=== PATIENT | male | born 1995 | race Caucasian/White ===

== ENCOUNTER 2023-10-24 07:53 | Outpatient (OUT) | payer OTHER, SELFPAY ==
[2023-10-24 08:13] LABS: Basophils Percent Auto 0.4 % (0.2-2.0); Eosinophils Absolute Auto 0.5 10^3/uL (0.0-0.7); Eosinophils Percent Auto 5.7 % (0.9-7.0); Hematocrit 46.7 % (42.0-54.0); Hemoglobin 15.7 g/dL (14.0-18.0); Immature Granulocytes Abs Auto 0.01 10^3/uL (0.00-0.03); Immature Granulocytes Pct Auto 0.1 % (0.0-0.5); Lymphocytes Absolute Auto 3.1 10^3/uL (1.2-3.8); Mean Corpuscular HGB Conc 33.6 g/dL (29.9-35.2); Mean Corpuscular Hemoglobin 29.3 pg (25.9-34.0); Mean Corpuscular Volume 87.3 fL (80.0-94.0); Mean Platelet Volume 9.8 fL (9.5-13.5); Monocytes Absolute Auto 0.7 10^3/uL (0.3-0.8); Neutrophils Percent Auto 47.8 % (43.0-75.0); Platelet Count 269 10^3/uL (150-450); Red Blood Count 5.35 10^6/uL (4.70-6.10); Red Cell Distribution Width 11.9 % (11.0-15.0); White Blood Count 8.3 10^3/uL (4.0-11.0)
[2023-10-24 08:35] LABS: Estimated Average Glucose 105 mg/dL; Glycohemoglobin A1C 5.3 % (4.5-6.2)
[2023-10-24 08:49] LABS: Bilirubin Urine NEGATIVE (NEGATIVE); Blood Urine TRACE-I (NEGATIVE); Clarity Urine CLEAR (CLEAR); Color Urine YELLOW (YELLOW); Glucose Urine UA NEGATIVE (NEGATIVE); Ketones Urine NEGATIVE (NEGATIVE); Leukocyte Esterase Urine NEGATIVE (NEGATIVE); Nitrite Urine NEGATIVE (NEGATIVE); Protein Urine NEGATIVE (NEG/TRACE); Specific Gravity Urine >=1.030 (1.005-1.025); Urobilinogen Urine 0.2 EU/dL (0.2-1.0); pH Urine 5.5 (5.0-9.0)
[2023-10-24 09:08] LABS: Bacteria Urine TRACE #/HPF (NONE SEEN); Crystals Seen? None Seen #/HPF (None Seen); Mucus Urine NONE SEEN (NONE SEEN); RBC Urine 0-2 #/HPF (0-2); Squamous Epithelial Cell Urine RARE #/LPF (NONE/RARE); WBC Urine 0-2 #/HPF (NONE SEEN)
[2023-10-24 09:09] LABS: Cast Seen? NONE SEEN #/LPF (NONE SEEN)
[2023-10-24 09:30] LABS: Alanine Aminotransferase 63 U/L (16-63); Albumin Globulin Ratio 0.9; Alkaline Phosphatase 64 U/L (46-116); Anion Gap 11.3; Aspartate Amino Transferase 16 U/L (15-37); BUN Creatinine Ratio 18.9; Bilirubin Total 0.4 mg/dL (0.2-1.0); Calcium 9.4 mg/dL (8.5-10.1); Carbon Dioxide 29.7 mmol/L (21.0-32.0); Chloride 104 mmol/L (98-107); Chol HDL Ratio 4.6; Cholesterol 225 mg/dL (<=200); Estimated GFR (African America >60 (>=60); Estimated GFR (Non-African Ame >60 (>=60); Globulin 4.3 g/dL; Glucose 95 mg/dL (74-106); HDL Cholesterol 49 mg/dL (40-60); Sodium 141 mmol/L (136-145); Thyroid Stimulating Hormone 1.205 uIU/mL (0.358-3.740); Total Protein 8.3 g/dL (6.4-8.2); Triglycerides 74 mg/dL (<=150); Uric Acid 5.4 mg/dL (3.5-7.2); VLDL CHOLESTEROL 14.8 mg/dL
== END 2023-10-24 07:54 | disposition home or self-care (01) ==
LOC: LAB 07:57
PROVIDERS: PCP Family Medicine; Visit Provider Family Medicine
DX: Z00.00 Encounter for general adult medical examination without abnormal findings (principal); M10.9 Gout, unspecified
CPT/HCPCS: 36415; 80053; 80061; 81001; 83036; 84443; 84550; 85025

== ENCOUNTER 2023-11-17 20:00 | Outpatient (OUT) | payer OTHER, SELFPAY ==
--- OUTSIDE RECORDS SUMMARY | 2023-11-17 20:02 | XMS_ITS | CCD ---
Author Name Unknown Address [address] [facility] [address] [place] [address] Organization [facility] Care Team Providers Care Field Operations Coordinator Name Role Phone JOAQUINA, DR HALEY Attending Unavailable JOAQUINA, DR HALEY Admitting Unavailable JOAQUINA, DR HALEY Primary Care Unavailable JOAQUINA, DR HALEY Admitting Unavailable JOAQUINA, DR HALEY Primary Care Unavailable JOAQUINA, DR HALEY Consulting Unavailable JOAQUINA, DR HALEY Attending Unavailable Tera Kunz Unavailable MD Maxwell Denis Attending Provider Maxwell Denis Admitting Unavailable Maxwell Denis Attending Unavailable Medications Current Medications Medication Drug Class(es) Dates Sig (Normalized) Sig (Original) [id number] 200 actuat albuterol 0.09 mg/actuat metered dose inhaler (2 sources) beta2-Adrenergic Agonist ProAir HFA 108 (90 Base) MCG/ACT 2 inhalations Inhalation q4 hrs prn prn Active allopurinol 100 mg oral tablet (5 sources) Xanthine Oxidase Inhibitor take 2 tablets by mouth once daily Allopurinol 100 MG TAKE 2 TABLETS BY MOUTH DAILY for 90 days Active azithromycin 250 mg oral tablet (1 source) Macrolide Antimicrobial Start: 10-26-2023 Azithromycin 250 MG 2 tablets on day 1 Orally then take 1 tablet daily on days 2-5 for 5 days Oct, Active cephalexin 500 mg oral capsule (1 source) Cephalosporin Antibacterial Start: 10-01-2022 take 1 capsule by mouth every eight hours Cephalexin 500 MG 1 capsule Orally tid for 10 days Sep, Active fexofenadine hydrochloride 180 mg oral tablet (5 sources) Histamine-1 Receptor Antagonist take 1 tablet by mouth every twenty-four hours Fexofenadine HCl 180 MG 1 tablet Orally Once a day Active fluocinonide 0.0005 mg/mg topical ointment (5 sources) Corticosteroid Fluocinonide 0.0 5 % APPLY TO AFFECTED AREA TWICE A DAY NEEDED DIRECTED for 30 Active Fluocinonide 0.0 5 % Externally prn Active methylPREDNISolone 4 mg oral tablet (1 source) Corticosteroid Start: 01-30-2020 methylPREDNISo lone 4 MG as directed Orally with food for 6 days prn Jan, Active predniSONE 20 mg oral tablet (1 source) Start: 10-01-2022 predniSONE 20 MG 2 tablets a day x5 days then take 1 tablet a day Orally x5 days with food or milk for 10 days Sep, Active ProAir HFA 108 (90 Base) MCG/ACT (3 sources) ProAir HFA 108 ( 90 Base) MCG/ACT 2 inhalations Inhalation q4 hrs prn Active ProAir HFA 108 ( 90 Base) MCG/ACT 2 inhalations Inhalation q4 hrs prn prn Active Rhinocort Aqua 32 MCG/ACT (5 sources) Start: 07-13-2013 take 2 spray(s) nasa l route once daily as needed Rhinocort Aqua 32 MCG/ACT 2 sprays each nostril Nasally Once a day prn Jun, Active Completed/Discontinued Medications Medication Drug Class(es) Dates Sig (Normalized) Sig (Original) terbinafine 250 mg oral tablet (3 sources) Allylamine Antifungal Start: 11-16-2022 take 1 tablet by mouth every twenty-four hours Terbinafine HCl 250 MG 1 tablet Orally Once a day for 15 days Oct, Not-Taking Problems Active Problems Problem Classification Problem Date Documented Da te Episodic/Chronic Diabetes mellitus without complication (1 source) Hyperglycemia, unspecified Episodic Disorders of lipid metabolism (7 sources) Dyslipidemia; Translations: [Hyperlipidemia, unspecified] Chronic Gout and other crystal arthropathies (12 sources) Gout, unspecified; Translations: [Gout] Onset: 05-18-2021 Resolved: 05-25-2022 Chronic Malaise and fatigue (1 source) Other fatigue Episodic Other aftercare (2 sources) Other residential (current) drug therapy; Translations: [[facility] CURRENT [facility]APY] Onset: 05-20-2021 Episodic Other lower respiratory disease (1 source) Snoring Episodic Other nutritional; endocrine; and metabolic disorders (2 sources) Abnormal weight loss Onset: 05-25-2022 Resolved: 05-25-2022 Episodic Other upper respiratory disease (5 sources) Allergic rhinitis; Translations: [Allergic rhinitis, unspecified] Chronic Other upper respiratory disease (3 sources) Allergic rhinitis, unspecified Onset: 05-25-2022 Resolved: 05-25-2022 Chronic Skin and subcutaneous tissue infections (2 sources) Cellulitis, unspecified Episodic Past or Other Problems Problem Classification Problem Date Documented Da te Episodic/Chronic Headache; including migraine (1 source) Headache; including migraine Unclassified (1 source) Cough R05.9 Results Test Name Value Interpretation Reference Range Facil ity Superficial Wound Cultureon 04-21-2023 Superficial Wound Culture Heavy Normal Skin Ermelinda 2 Days PERFORMED BY: [place] [address] PATHOLOGIST BLOW TORCH OPERATOR ABDIEL JIMENES M.D. [facility] Comment on above: Performed By: #### C USUP #### [address] CBC AUTO DIFFon 05-18-2021 BASO # 0.0 103/ul Normal 0.0-0.1 [facility] Comment on above: Performed By: #### C BC #### [facility] [address] [place], [place] [address] Durga Karishma Basophils/100 WBC (Bld) 0.5 % Normal 0.2-2.0 [facility] Comment on above: Performed By: #### C BC #### [facility] [address] [place], [place] [address] Durga Karishma EO # 0.3 103/ul Normal 0.0-0.7 [facility] Comment on above: Performed By: #### C BC #### [facility] [address] [place], [place] [address] Durga Karishma Eosinophils/100 WBC (Bld) 4.5 % Normal 0.9-7.0 [facility] Comment on above: Performed By: #### C BC #### [facility] [address] [place], [place] [address] Durga Karishma Erythrocyte distribution width (RBC) [Ratio] 12.0 % Normal 11.0-15.0 [facility] Comment on above: Performed By: #### C BC #### [facility] [address] [place], [place] [id number] Durga Karishma Hematocrit (Bld) [Volume fraction] 44.0 % Normal 42.0-54.0 [facility] Comment on above: Performed By: #### C BC #### [facility] [address] [place] [address] Durga Karishma Hemoglobin (Bld) [Mass/Vol] 14.9 g/dL Normal 14.0-18.0 [facility] Comment on above: Performed By: #### C BC #### [facility] [address] [place] [address] Durga Karishma IG # 0.01 10e3/ul Normal 0.00-0.03 [facility] Comment on above: Performed By: #### C BC #### [facility] [address] [place] [address] Durga Karishma IG % 0.1 % Normal 0.0-0.5 [facility] Comment on above: Performed By: #### C BC #### [facility] [address] [place] [address] Durga Karishma LYMPH # 2.8 103/ul Normal 1.2-3.8 [facility] Comment on above: Performed By: #### C BC #### [facility] [address] [place] [address] Durga Karishma Lymphocytes/100 WBC (Bld) 38.1 % Normal 20.5-60.0 [facility] Comment on above: Performed By: #### C BC #### [facility] [address] [place], [place] [address] Durga Karishma MANUAL DIFF REQ NO Normal [facility] Comment on above: Performed By: #### C BC #### [facility] [address] [place], [place] [address] Durga Karishma MCH (RBC) [Entitic mass] 29.7 pg Normal 25.9-34.0 [facility] Comment on above: Performed By: #### C BC #### [facility] [address] [place], [place] [address] Durga Karishma MCHC (RBC) [Mass/Vol] 33.9 g/dL Normal 29.9-35.2 [facility] Comment on above: Performed By: #### C BC #### [facility] [address] [place] [address] Durga Schwarz MCV (RBC) [Entitic vol] 87.8 fL Normal 80.0-94.0 [facility] Comment on above: Performed By: #### C BC #### [facility] [address] [place] [address] Durga Karishma MONO # 0.6 103/ul Normal 0.3-0.8 [facility] Comment on above: Performed By: #### C BC #### [facility] [address] [place] [address] Durga Schwarz Monocytes/100 WBC (Bld) 8.6 % Normal 1.7-12.0 [facility] Comment on above: Performed By: #### C BC #### [facility] [address] [place] [address] Durga Karishma NEUT # 3.5 103/ul Normal 1.4-6.5 [facility] Comment on above: Performed By: #### C BC #### [facility] [address] [place] [address] Durga Schwarz Neutrophils/100 WBC (Bld) 48.2 % Normal 43.0-75.0 [facility] Comment on above: Performed By: #### C BC #### [facility] [address] [place] [address] Durgasimeon Schwarz Platelet mean volume (Bld) [Entitic vol] 9.8 fL Normal 9.5-13.5 [facility] Comment on above: Performed By: #### C BC #### [facility] [address] [place] [address] Durga Karishma PLT 244 103/ul Normal 150-450 [facility] Comment on above: Performed By: #### C BC #### [facility] [address] [place] [address] Durga Karishma RBC 5.01 106/ul Normal 4.70-6.10 [facility] Comment on above: Performed By: #### C BC #### [facility] [address] [place], [place] [address] Durga Karishma WBC 7.4 103/ul Normal 4.0-11.0 [facility] Comment on above: Performed By: #### C BC #### [facility] [address] [place], [place] [address] Durga Schwarz PROF 14(COMP METB)on 021 Albumin [Mass/Vol] 3.9 g/dL Normal 3.5-5.0 [facility] Comment on above: Performed By: #### C MP, URIC #### [facility] [address] [place], [place] [address] Durgasimeon Schwarz Albumin/Globulin [Mass ratio] 1.0 {ratio} Normal [facility] Comment on above: Performed By: #### C MP, URIC #### [facility] [address] [place], [place] [address] Durga Karishma ALP [Catalytic activity/Vol] 54 U/L Normal 38-126 [facility] Comment on above: Performed By: #### C MP, URIC #### [facility] [address] [place], [place] [address] Durga Karishma ALT [Catalytic activity/Vol] 46 U/L Normal 21-72 [facility] Comment on above: Performed By: #### C MP, URIC #### [facility] [address] [place], [place] [address] Durga Karishma Anion gap [Moles/Vol] 11.9 mmol/L Normal [facility] Comment on above: Performed By: #### C MP, URIC #### [facility] [address] [place], [place] [address] Durga Karishma AST [Catalytic activity/Vol] 17 U/L Normal 17-59 [facility] Comment on above: Performed By: #### C MP, URIC #### [facility] [address] [place], [place] [address] Durga Karishma Bilirubin [Mass/Vol] 0.5 mg/dL Normal 0.2-1.3 [facility] Comment on above: Performed By: #### C MP, URIC #### [facility] [address] [place] [address] Durga Karishma Calcium [Mass/Vol] 9.1 mg/dL Normal 8.4-10.2 [facility] Comment on above: Performed By: #### C MP, URIC #### [facility] [address] [place] [address] Durga Karishma Chloride [Moles/Vol] 106 mmol/L Normal 98-107 [facility] Comment on above: Performed By: #### C MP, URIC #### [facility] [address] [place] [address] Durga Karishma CO2 [Moles/Vol] 29.3 mmol/L Normal 22.0-30.0 [facility] Comment on above: Performed By: #### C MP, URIC #### [facility] [address] [place] [address] Durga Karishma Creatinine [Mass/Vol] 1.16 mg/dL Normal 0.66-1.25 [facility] Comment on above: Performed By: #### C MP, URIC #### [facility] [address] [place], [place] [address] Durga Karishma EGFR-AF SURINAMESE >60 Normal >=60 [facility] Comment on above: Performed By: #### C MP, URIC #### [facility] [address] [place] [address] Durga Karishma EGFR-NON AF SURINAMESE >60 Normal >=60 [facility] Comment on above: Performed By: #### C MP, URIC #### [facility] [address] [place] [address] Durga Karishma Globulin (S) [Mass/Vol] 3.9 g/dL Normal [facility] Comment on above: Performed By: #### C MP, URIC #### [facility] [address] [place] [address] Durga Karishma Glucose [Mass/Vol] 104 mg/dL Normal 74-106 [facility] Comment on above: Performed By: #### C MP, URIC #### [facility] [address] [place], [place] [address] Durga Karishma Potassium [Moles/Vol] 4.2 mmol/L Normal 3.4-5.0 [facility] Comment on above: Performed By: #### C MP, URIC #### [facility] [address] [place], [place] [address] Durga Karishma Protein [Mass/Vol] 7.8 g/dL Normal 6.1-8.2 [facility] Comment on above: Performed By: #### C MP, URIC #### [facility] [address] [place], [place] [address] Durga Karishma Sodium [Moles/Vol] 143 mmol/L Normal 137-145 [facility] Comment on above: Performed By: #### C MP, URIC #### [facility] [address] [place], [place] [address] Durga Karishma Urea nitrogen [Mass/Vol] 15.0 mg/dL Normal 9.0-20.0 [facility] Comment on above: Performed By: #### C MP, URIC #### [facility] [address] [place], [place] [address] Durga Karishma Urea nitrogen/Creatinine [Mass ratio] 12.9 mg/mg Normal [facility] Comment on above: Performed By: #### C MP, URIC #### [facility] [address] [place] [address] Durga Karishma URIC ACID SERUMon 05-18-2021 Urate [Mass/Vol] 7.7 mg/dL Normal 3.5-8.5 [facility] Comment on above: Performed By: #### C MP, URIC #### [facility] [address] [place], [place] [address] Durga Karishma Vital Signs Date Time Vital Sign Value Performing Clinician Facility 10-26-2023 08:10-0500 Body height 177.8 cm Tera Kunz Other [facility] Other 10-26-2023 08:10-0500 Body mass index (BMI) [Ratio] 35.72 kg/m2 Tera Kunz Other [facility] Other 10-26-2023 08:10-0500 Body temperature 98.2 [degF] Tera Kunz Other [facility] Other 10-26-2023 08:10-0500 Body weight 112.95 kg Tera Kunz Other [facility] Other 10-26-2023 08:10-0500 Diastolic blood pressure 86 mm[Hg] Tera Kunz Other [facility] Other 10-26-2023 08:10-0500 Respiratory rate 18 /min Tera Kunz Other [facility] Other 10-26-2023 08:10-0500 SaO2% (BldA) [Mass fraction] 99 % Tera Kunz Other [facility] Other 10-26-2023 08:10-0500 Systolic blood pressure 124 mm[Hg] Tera Kunz Other [facility] Other 10-01-2022 14:10-0500 Body height 177.8 cm Tera Kunz Other [facility] Other 10-01-2022 14:10-0500 Body mass index (BMI) [Ratio] 37.09 kg/m2 Tera Kunz Other [facility] Other 10-01-2022 14:10-0500 Body temperature 97.5 [degF] Tera Kunz Other [facility] Other 10-01-2022 14:10-0500 Body weight 117.26 kg Tera Kunz Other [facility] Other 10-01-2022 14:10-0500 Diastolic blood pressure 84 mm[Hg] Tera Joaquina Other [facility] Other 10-01-2022 14:10-0500 Respiratory rate 18 /min Tera Kunz Other [facility] Other 10-01-2022 14:10-0500 SaO2% (BldA) [Mass fraction] 97 % Tera Sheflorencio Other [facility] Other 10-01-2022 14:10-0500 Systolic blood pressure 126 mm[Hg] Tera Kunz Other [facility] Other 05-25-2022 09:10-0400 Body height 177.8 cm Tera Sheflorencio Other [facility] Other 05-25-2022 09:10-0400 Body mass index (BMI) [Ratio] 36.3 kg/m2 Tera Joaquina Other [facility] Other 05-25-2022 09:10-0400 Body temperature 96.9 [degF] Tera Nowakflorencio Other [facility] Other 05-25-2022 09:10-0400 Body weight 114.76 kg Tera Sheflorencio Other [facility] Other 05-25-2022 09:10-0400 Diastolic blood pressure 80 mm[Hg] Tera Kunz Other [facility] Other 05-25-2022 09:10-0400 Respiratory rate 18 /min Tera Sheflorencio Other [facility] Other 05-25-2022 09:10-0400 SaO2% (BldA) [Mass fraction] 97 % Tera Kunz Other [facility] Other 05-25-2022 09:10-0400 Systolic blood pressure 120 mm[Hg] Tera Kunz Other [facility] Other Encounters Encounter Date Encounter Type Care Provider Facility Start: 10-26-2023 End: 10-26-2023 ambulatory Tera Kunz Other [facility] Other Start: 10-26-2023 Encounter for genera l adult medical examination without abnormal findings Tera Kunz [facility] [place] Start: 10-26-2023 Periodic preventive med est patient 18-39 yrs Tera Kunz [facility] [place] Start: 09-01-2023 End: 09-01-2023 ambulatory Tera Kunz Other [facility] Other Start: 09-01-2023 Encounter for genera l adult medical examination without abnormal findings Tera Kunz [facility] [place] Start: 09-01-2023 Telephone encounter Tera Kunz [facility] [place] Start: 04-21-2023 End: 04-21-2023 ambulatory Maxwell Denis Facility:[facility] Start: 04-21-2023 End: 04-21-2023 ambulatory MD Maxwell Denis Work Phone: [facility] Work Phone: Start: 04-21-2023 End: 04-21-2023 Departed Referred MD Maxwell Denis Work Phone: [facility] [place] Work Phone: Start: 11-16-2022 End: 11-16-2022 ambulatory Tera Kunz Other [facility] Other Start: 11-16-2022 Telephone encounter Tera Kunz [facility] [place] Start: 10-01-2022 End: 10-01-2022 ambulatory Tera Kunz Other [facility] Other Start: 10-01-2022 Office outpatient vi sit 15 minutes Tera Kunz [facility] Start: 05-25-2022 End: 05-25-2022 ambulatory Tera Kunz Other [facility] Other Start: 05-25-2022 Encounter for genera l adult medical examination without abnormal findings Tera Kunz [facility] Start: 05-25-2022 Periodic preventive med est patient 18-39 yrs Tera Kunz [facility] Start: 05-18-2021 End: 05-19-[address] TERA KUNZ Facility:[facility] Start: 03-17-[address] TERA KUNZ Facilit y:[facility] Plan of Treatment Date Care Activity Detail Author Start: 04-21-2023 Superficial Wound Culture Superficial Wound Culture [facility] Bacteria identified in Unspecified specimen by Aerobe culture [facility] Immunizations Immunization Date Immunization Notes Care Provider Fa joselyn 02-22-2018 tetanus toxoid, reduced diphtheria toxoid, and acellular pertussis vaccine, adsorbed Tera Kunz Other [facility] Other Payers Date Payer Category Payer Unknown [id number] [id number] [id number] 1995 Unknown [id number] [id number] [id number] 1961 Self-pay 1961 Unknown [id number] Unknown [facility] [id number] Unknown [id number] 2.16.8 [id number] Social History Date Type Detail Facility Unknown if ever smoked [facility] Other Sex Assigned At Sex Assigned At Bir th [facility] Other Start: 1995 Sex Assigned At Male F [facility] Evaluation note 10-26-2023 Note Date & Type Note Facility 10-26-2023 Evaluation note Encounter Date Diagnosis Assessment Notes Oct, Wellness examination (ICD-10 - Z00.00) He is here for a wellness exam today. Oct, Gout (ICD-10 - M10.9) His uric acid level was 5.4. He is to continue with the same dose of Allopurinol. Oct, Allergic rhinitis (ICD-10 - J30.9) He voices that he continues with above medications daily as directed. 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 He is better than he was but he always feels stuffed up . He has been wheezing over the last couple of weeks so he has been using his inhaler which works for him. Normally he can go weeks without using this. He is not sure if he got into something in the last couple of weeks. I am going to provide him with a refill on his inahler but will also treat him with Zithromax. 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 His TSH is normal at 1.205. Since prior to 2019 he has lost 23 pounds. He feels that his weight fluctuates. Oct, Hyperglycemia (ICD-10 - R73.9) Discussed blood sugar results with patient today. Glucose is 95. HgA1C is 5.3 which is normal. Oct, Hyperlipidemia (ICD-10 - E78.5) Discussed cholesterol results with patient today. Total is 225. HDL is 49. LDL is 162.0. Triglycerides are 74. VLDL is 14.8. We discussed his LDL and that we would like to see this level around 70. His VLDL, HDL and triglyceride levels are good. I recommended that he continue to work on weight loss. Continue to monitor his intake of carbs and sugars. Stay active. He voices that he is going to continue with his weight loss and will continue with dietary changes. I did recommend that he have his cholesterol checked once a year unless he loses a significant amount of weight and would like to see what his readings are at that time. His AST is 16. ALT is 63 which is at the high end of normal. We discussed that this is likely due to fatty liver developing. I did explain to him what fatty liver is and how it affects the body. He does eat mostly home cooked meals. He should try to cut down on his intake of carbs and continue with weight loss. Oct, Snoring (ICD-10 - R06.83) He voices that he snores and has his whole life. He wakes up fatigued and with a headache. He would like a referral to the sleep lab. Oct, Headache (ICD-10 - R51.9) Oct, Fatigue (ICD-10 - R53.83) He voices that when he wakes up he feels fatigued. Oct, Cough (ICD-10 - R05.9) Due to wheezing for the last couple of weeks and him bringing up green sputum I will treat with a Z yessenia. He is agreeable to this. Guidance is given on how to take the medication. He is to keep me posted on whether this works. Oct, Other His urine was concentrated when evaluated, he voices that he was unaware he needed to provide a sample and had just voided prior to giving the sample. He does normally stay well hydrated. He is to continue to drink plenty of water daily. He has been to dermatology multiple times for evaluation of his right hand finger, he voices that if he stops using medication it will turn red, and have pus come out of it and he will not be able to bend it. He voices that this issue started a year and a half ago. He voices that he was treated for a fungal and bacterial infection and nothing seems to work. They took a sample from the finger and told him nothing abnormal came back. [facility] Other Evaluation note 09-01-2023 Note Date & Type Note Facility 09-01-2023 Evaluation note Encounter Date Diagnosis Assessment Notes Aug, Gout (ICD-10 - M10.9) Aug, Wellness examination (ICD-10 - Z00.00) [facility] Other Evaluation note 11-16-2022 Note Date & Type Note Facility 11-16-2022 Evaluation note Encounter Date Diagnosis Assessment Notes Oct, Cellulitis (ICD-10 - L03.90) [facility] Other Evaluation note 10-01-2022 Note Date & Type Note Facility 10-01-2022 Evaluation note Encounter Date Diagnosis Assessment Notes Sep, Allergic rhinitis (ICD-10 - J30.9) Provided him with a new prescription for above medications today. Sep, Cellulitis (ICD-10 - L03.90) I will treat him with an antibiotic and Prednisone. I want him to stop using Neosporin and instead use Bacitracin which should not irritate the skin like the Neosporin can. Guidance is given on how to take the above medications. If this is fungal in nature it could worsen. He is to keep me posted and should call me when he finishes the antibiotic with how he is doing. If it is worse then he is to let me know and we will treat for a fungal infection. [facility] Other Evaluation note 05-25-2022 Note Date & Type Note Facility 05-25-2022 Evaluation note Encounter Date Diagnosis Assessment Notes May, Wellness examination (ICD-10 - Z00.00) I did provide him with an order to have fasting lab drawn soon. He can call for results. May, Gout (ICD-10 - M10.9) He denies any gout flare ups since last seen. I will provide him with a steroid dose pack to have in case he develops a flare up. He is taking Allopurinol daily as directed. May, Allergic rhinitis (ICD-10 - J30.9) Provided him with a new prescription for the Fexofenadine today. May, Weight loss (ICD-10 - R63.4) He has lost 10 pounds since last seen. He is encouraged to continue with what he is doing. [facility] Other Evaluation note Note Date & Type Note Facility Evaluation note No assessment information availa [facility] Work Phone: History general Narrative - Reported Note Date & Type Note Facility History general Narrative - Reported Type Medical History Chicken Pox Medical History Right Collar Bone Fracture Medical History Allergies Hospitalization History Broken Collar Bone [facility] Other Summary Purpose Family History No Family History Records FoundNo Family History Records Found Advance Directives Advance Directive Response Recorded Date/ Time Advance Directives No October 12:16pm Reason for Referral Reason appt pt needs cons ult with sleep lab in [place] Diagnosis 1 Snoring (R06.83) Referral Organization [facility] [place] Referring Provider First Name Tera Referring Provider Last Name Sheflorencio Referring Provider Specialty Family Prac dinora Referred Organization [facility] Referred Address [address], [place],[address] Referred Provider Specialty Sleep Medici ne Referral Priority Routine General Notes Jessica Velasquez 10/26/2023 08:45:50 AM > [facility] referral form faxed with visit note and insurance card. pt understands he will be contacted to schedule this appt. Additional Source Comments (unrecognized sect ion and content) No Status Records FoundNo Status Records Found INFORMATION SOURCE (unrecogn ized section and content) DATE CREATED AUTHOR 05/22/2021 [facility] [place] [facility] DATE CREATED AUTHOR AUTHOR'S ORGANIZ ATION 05/01/2023 [facility] REASON FOR VISIT (unrecogniz ed section and content) yearly check uppossible infe ction rt pinky fingerfingerClinicalwellness/review labs Care Teams (unrecognized sec tion and content) Team Status: Inactive Member Role Status Dates Maxwell Denis MD Attending Provider Active Goals (unrecognized section and content) Goals may be documented in a n alternate section FOR RECORDS PERTAINING TO PATIENTS WHO ARE OR HAVE BEEN ENROLLED IN A CHEMICAL DEPENDENCY/SUBSTANCEABUSE PROGRAM, SOME INFORMATION MAY BE OMITTED. This clinical summary was aggregated from multiple sources. Caution should be exercised in using it in the provision of clinical care. This summary normalizes information from multiple sources, and as a consequence, information in this document may materially change the coding, format and clinical context of patient data. In addition, data may be omitted in some cases. CLINICAL DECISIONS SHOULD BE BASED ON THE PRIMARY CLINICAL RECORDS. [facility]. provides no warranty or guarantee of the accuracy or completeness of information in this document.
== END 2023-11-17 20:01 | disposition home or self-care (01) ==
LOC: SLEEP 20:01
PROVIDERS: PCP Family Medicine; Visit Provider Family Medicine
DX: G47.33 Obstructive sleep apnea (adult) (pediatric) (principal); G47.11 Idiopathic hypersomnia with long sleep time
CPT/HCPCS: 95810

== ENCOUNTER 2023-12-13 20:48 | Outpatient (OUT) | payer OTHER, SELFPAY ==
--- OUTSIDE RECORDS SUMMARY | 2023-12-13 20:51 | XMS_ITS | CCD ---
Author Name Unknown Address [address] [place] [address] Organization [facility] Care Team Providers Care Meter Attendant Name Role Phone JOAQUINA, DR HALEY Attending Unavailable JOAQUINA, DR HALEY Admitting Unavailable JOAQUINA, DR HALEY Primary Care Unavailable JOAQUINA, DR HALEY Admitting Unavailable JOAQUINA, DR HALEY Primary Care Unavailable JOAQUINA, DR HALEY Consulting Unavailable JOAQUINA, DR HALEY Attending Unavailable Tera Kunz Unavailable MD Maxwell Denis Attending Provider [phone] Maxwell Denis Admitting Unavailable Maxwell Denis Attending Unavailable Medications Current Medications Medication Drug Class(es) Dates Sig (Normalized) Sig (Original) [id number] 200 actuat albuterol 0.09 mg/actuat metered dose [...] fatigue Episodic Other aftercare (2 sources) Other jail (current) drug therapy; Translations: [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 [facility] Comment on above: Performed By: #### C USUP #### [address] CBC AUTO DIFFon 05-18-2021 BASO # 0.0 103/ul Normal 0.0-0.1 [facility] Comment on above: Performed By: #### C BC #### [facility] [address] [place], [place] [address] Durga Karishma Basophils/100 WBC (Bld) 0.5 % Normal 0.2-2.0 [facility] Comment on above: Performed By: #### C BC #### [facility] [address], [place] [address] Durga Karishma EO # 0.3 103/ul Normal 0.0-0.7 [facility] Comment on above: Performed By: #### C BC #### [facility] [address], [place] [address] Durga Karishma Eosinophils/100 WBC (Bld) 4.5 % Normal 0.9-7.0 [facility] Comment on above: Performed By: #### C BC #### [facility] [address], [place] [address] Durga Karishma Erythrocyte distribution width (RBC) [Ratio] 12.0 % Normal 11.0-15.0 [facility] Comment on above: Performed By: #### C BC #### [facility] [address] [place], [place] [id number] Durga Karishma Hematocrit (Bld) [Volume fraction] 44.0 % Normal 42.0-54.0 [facility] Comment on above: Performed By: #### C BC #### [facility] [address] [place] [address] Durga Karishma Hemoglobin (Bld) [Mass/Vol] 14.9 g/dL Normal 14.0-18.0 [facility] Comment on above: Performed By: #### C BC #### [facility] [address] [place] [address] Durga Karishma IG # 0.01 10e3/ul Normal 0.00-0.03 [facility] Comment on above: Performed By: #### C BC #### [facility] [address] [place] [address] Durga Karishma IG % 0.1 % Normal 0.0-0.5 [facility] Comment on above: Performed By: #### C BC #### [facility] [address] [place] [address] Durga Karishma LYMPH # 2.8 103/ul Normal 1.2-3.8 [facility] Comment on above: Performed By: #### C BC #### [facility] [address] [place] [address] Durga Karishma Lymphocytes/100 WBC (Bld) 38.1 % Normal 20.5-60.0 [facility] Comment on above: Performed By: #### C BC #### [facility] [address] [place], [place] [id number] Durga Karishma MANUAL DIFF REQ NO Normal [facility] Comment on above: Performed By: #### C BC #### [facility] [address] [place], [place] [id number] Durga Karishma MCH (RBC) [Entitic mass] 29.7 pg Normal 25.9-34.0 [facility] Comment on above: Performed By: #### C BC #### [facility] [address] [place], [place] [id number] Durga Karishma MCHC (RBC) [Mass/Vol] 33.9 g/dL Normal 29.9-35.2 [facility] Comment on above: Performed By: #### C BC #### [facility] [address] [place] [address] Durga Schwarz MCV (RBC) [Entitic vol] 87.8 fL Normal 80.0-94.0 [facility] Comment on above: Performed By: #### C BC #### [facility] [address] [place] [address] Durga Karishma MONO # 0.6 103/ul Normal 0.3-0.8 [facility] Comment on above: Performed By: #### C BC #### [facility] [address] [place] [address] Durga Schwarz Monocytes/100 WBC (Bld) 8.6 % Normal 1.7-12.0 [facility] Comment on above: Performed By: #### C BC #### [facility] [address] [place] [address] Durga Karishma NEUT # 3.5 103/ul Normal 1.4-6.5 [facility] Comment on above: Performed By: #### C BC #### [facility] [address] [place] [address] Durga Schwarz Neutrophils/100 WBC (Bld) 48.2 % Normal 43.0-75.0 [facility] Comment on above: Performed By: #### C BC #### [facility] [address] [place] [address] Durgasimeon Schwarz Platelet mean volume (Bld) [Entitic vol] 9.8 fL Normal 9.5-13.5 [facility] Comment on above: Performed By: #### C BC #### [facility] [address] [place] [address] Durga Karishma PLT 244 103/ul Normal 150-450 [facility] Comment on above: Performed By: #### C BC #### [facility] [address] [place] [address] Durga Karishma RBC 5.01 106/ul Normal 4.70-6.10 [facility] Comment on above: Performed By: #### C BC #### [facility] [address] [place], [place] [id number] Durga Karishma WBC 7.4 103/ul Normal 4.0-11.0 [facility] Comment on above: Performed By: #### C BC #### [facility] [address] [place], [place] [id number] Durga Schwarz PROF 14(COMP METB)on 021 Albumin [Mass/Vol] 3.9 g/dL Normal 3.5-5.0 [facility] [place] Comment on above: Performed By: #### C MP, URIC #### [facility] [address] [place], [place] [address] Durgasimeon Schwarz Albumin/Globulin [Mass ratio] 1.0 {ratio} Normal [facility] Comment on above: Performed By: #### C MP, URIC #### [facility] [address] [place], [place] [address] Durga Karishma ALP [Catalytic activity/Vol] 54 U/L Normal 38-126 [facility] Comment on above: Performed By: #### C MP, URIC #### [facility] [address] [place], [place] [address] Durga Karishma ALT [Catalytic activity/Vol] 46 U/L Normal 21-72 [facility] Comment on above: Performed By: #### C MP, URIC #### [facility] [address] [place], [place] [address] Durga Karishma Anion gap [Moles/Vol] 11.9 mmol/L Normal [facility] Comment on above: Performed By: #### C MP, URIC #### [facility] [address] [place], [place] [address] Durga Karishma AST [Catalytic activity/Vol] 17 U/L Normal 17-59 [facility] Comment on above: Performed By: #### C MP, URIC #### [facility] [address] [place], [place] [address] Durga Karishma Bilirubin [Mass/Vol] 0.5 mg/dL Normal 0.2-1.3 [facility] Comment on above: Performed By: #### C MP, URIC #### [facility] [address] [place] [address] Durga Karishma Calcium [Mass/Vol] 9.1 mg/dL Normal 8.4-10.[address] [facility] Comment on above: Performed By: #### C MP, URIC #### [facility] [address] [place] [address] Durga Karishma Chloride [Moles/Vol] 106 mmol/L Normal 98-107 [facility] Comment on above: Performed By: #### C MP, URIC #### [facility] [address] [place] [address] Durga Karishma CO2 [Moles/Vol] 29.3 mmol/L Normal 22.0-30.0 [facility] Comment on above: Performed By: #### C MP, URIC #### [facility] [address] [place] [address] Durga Karishma Creatinine [Mass/Vol] 1.16 mg/dL Normal 0.66-1.25 [facility] Comment on above: Performed By: #### C MP, URIC #### [facility] [address] [place], [place] [address] Durga Karishma EGFR-AF MALIAN >60 Normal >=60 [facility] Comment on above: Performed By: #### C MP, URIC #### [facility] [address] [place] [address] Durga Karishma EGFR-NON AF MALIAN >60 Normal >=60 [facility] Comment on above: Performed By: #### C MP, URIC #### [facility] [address] [place] [address] Durga Karishma Globulin (S) [Mass/Vol] 3.9 g/dL Normal [facility] Comment on above: Performed By: #### C MP, URIC #### [facility] [address] [place] [address] Durga Karishma Glucose [Mass/Vol] 104 mg/dL Normal 74-[address] [facility] Comment on above: Performed By: #### C MP, URIC #### [facility] [address], [place] [address] Durga Karishma Potassium [Moles/Vol] 4.2 mmol/L Normal 3.4-5.0 [facility] Comment on above: Performed By: #### C MP, URIC #### [facility] [address], [place] [address] Durga Karishma Protein [Mass/Vol] 7.8 g/dL Normal 6.1-8.2 [facility] Comment on above: Performed By: #### C MP, URIC #### [facility] [address], [place] [address] Durga Karishma Sodium [Moles/Vol] 143 mmol/L Normal 137-145 [facility] Comment on above: Performed By: #### C MP, URIC #### [facility] [address], [place] [address] Durga Karishma Urea nitrogen [Mass/Vol] 15.0 mg/dL Normal 9.0-20.0 [facility] Comment on above: Performed By: #### C MP, URIC #### [facility] [address], [place] [address] Durga Karishma Urea nitrogen/Creatinine [Mass ratio] 12.9 mg/mg Normal [facility] Comment on above: Performed By: #### C MP, URIC #### [facility] [address] [place] [address] Durga Karishma URIC ACID SERUMon 05-18-2021 Urate [Mass/Vol] 7.7 mg/dL Normal 3.5-8.5 [facility] Comment on above: Performed By: #### C MP, URIC #### [facility] [address], [place] [address] Durga Karishma Vital Signs Date Time Vital Sign Value Performing Clinician Facility 10-26-2023 08:10-0500 Body height 177.8 cm Tera Kunz Other [facility] Other 10-26-2023 08:10-0500 Body mass index (BMI) [Ratio] 35.72 kg/m2 Tera Kunz Other [facility] Other 10-26-2023 08:10-0500 Body temperature 98.2 [degF] Tera Kunz Other [facility] Other 10-26-2023 08:10-0500 Body weight 112.95 kg Tera Kunz Other [facility] Other 10-26-2023 08:10-0500 Diastolic blood pressure 86 mm[Hg] Tera Kunz Other [facility] Other 10-26-2023 08:10-0500 Respiratory rate 18 /min Tera Kunz Other [facility] Other 10-26-2023 08:10-0500 SaO2% (BldA) [Mass fraction] 99 % Tera Kunz Other [facility] Other 10-26-2023 08:10-0500 Systolic blood pressure 124 mm[Hg] Tera Kunz Other [facility] Other 10-01-2022 14:10-0500 Body height 177.8 cm Tera Kunz Other [facility] Other 10-01-2022 14:10-0500 Body mass index (BMI) [Ratio] 37.09 kg/m2 Tera Kunz Other [facility] Other 10-01-2022 14:10-0500 Body temperature 97.5 [degF] Tera Kunz Other [facility] Other 10-01-2022 14:10-0500 Body weight 117.26 kg Tera Kunz Other [facility] Other 10-01-2022 14:10-0500 Diastolic blood pressure 84 mm[Hg] Tera Joaquina Other [facility] Other 10-01-2022 14:10-0500 Respiratory rate 18 /min Tera Kunz Other [facility] Other 10-01-2022 14:10-0500 SaO2% (BldA) [Mass fraction] 97 % Tera Sheflorencio Other [facility] Other 10-01-2022 14:10-0500 Systolic blood pressure 126 mm[Hg] Tera Kunz Other [facility] Other 05-25-2022 09:10-0400 Body height 177.8 cm Tera Sheflorencio Other [facility] Other 05-25-2022 09:10-0400 Body mass index (BMI) [Ratio] 36.3 kg/m2 Tera Joaquina Other [facility] Other 05-25-2022 09:10-0400 Body temperature 96.9 [degF] Tera Nowakflorencio Other [facility] Other 05-25-2022 09:10-0400 Body weight 114.76 kg Tera Sheflorencio Other [facility] Other 05-25-2022 09:10-0400 Diastolic blood pressure 80 mm[Hg] Tera Kunz Other [facility] Other 05-25-2022 09:10-0400 Respiratory rate 18 /min Tera Sheflorencio Other [facility] Other 05-25-2022 09:10-0400 SaO2% (BldA) [Mass fraction] 97 % Tera Kunz Other [facility] Other 05-25-2022 09:10-0400 Systolic blood pressure 120 mm[Hg] Tera Kunz Other [facility] Other Encounters Encounter Date Encounter Type Care Provider Facility Start: 10-26-2023 End: 10-26-2023 ambulatory Tera Kunz Other [facility] Other Start: 10-26-2023 Encounter for genera l adult medical examination without abnormal findings Tera Kunz [facility] Start: 10-26-2023 Periodic preventive med est patient 18-39 yrs Tera Kunz [facility] Start: 09-01-2023 End: 09-01-2023 ambulatory Tera Knuz Other [facility] Other Start: 09-01-2023 Encounter for genera l adult medical examination without abnormal findings Tera Kunz [facility] [place] Start: 09-01-2023 Telephone encounter Tera Kunz [facility] Start: 04-21-2023 End: 04-21-2023 ambulatory Maxwell Denis Facility:[facility] Start: 04-21-2023 End: 04-21-2023 ambulatory MD Maxwell Denis Work Phone: [facility] Work Phone: Start: 04-21-2023 End: 04-21-2023 Departed Referred MD Maxwell Denis Work Phone: [facility] [place] Work Phone: Start: 11-16-2022 End: 11-16-2022 ambulatory Tera Kunz Other [facility] Other Start: 11-16-2022 Telephone encounter Tera Kunz [facility] [place] Start: 10-01-2022 End: 10-01-2022 ambulatory Tera Kunz Other [facility] Other Start: 10-01-2022 Office outpatient vi sit 15 minutes Tera Kunz [facility] Start: 05-25-2022 End: 05-25-2022 ambulatory Tera Kunz Other [facility] Other Start: 05-25-2022 Encounter for genera l adult medical examination without abnormal findings Tera Kunz [facility] Start: 05-25-2022 Periodic preventive med est patient 18-39 yrs Tera Kunz [facility] Start: 05-18-2021 End: 05-19-[address] TERA KUNZ Facility:[facility] Start: 03-17-[address] TERA KUNZ Facilit y:[facility] Plan of Treatment Date Care Activity Detail Author Start: 04-21-2023 Superficial Wound Culture Superficial Wound Culture [facility] Bacteria identified in Unspecified specimen by Aerobe culture [facility] Immunizations Immunization Date Immunization Notes Care Provider Fa joselyn 02-22-2018 tetanus toxoid, reduced diphtheria toxoid, and acellular pertussis vaccine, adsorbed Tera Kunz Other [facility] Other Payers Date Payer Category Payer Unknown [id number] [id number] [id number] 1993 Unknown [id number] [id number] 1961 Self-pay 1961 Unknown [id number] Unknown [facility] [id number] Unknown [id number] 2.16.8 [id number] Social History Date Type Detail Facility Unknown if ever smoked [facility] Other Sex Assigned At Sex Assigned At Bir th [facility] Other Start: 1995 Sex Assigned At Male F [facility] Evaluation note 10-26-2023 Note Date & Type [...] 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 He is better than he was [...] will also treat him with Zithromax. Oct, detention use of drug (ICD-10 - Z79.899) Oct, [...] and told him nothing abnormal came back. [facility] Other Evaluation note 09-01-2023 Note Date & Type Note Facility 09-01-2023 Evaluation note Encounter Date Diagnosis Assessment Notes Aug, Gout (ICD-10 - M10.9) Aug, Wellness examination (ICD-10 - Z00.00) [facility] Other Evaluation note 11-16-2022 Note Date & Type Note Facility 11-16-2022 Evaluation note Encounter Date Diagnosis Assessment Notes Oct, Cellulitis (ICD-10 - L03.90) [facility] Other Evaluation note 10-01-2022 Note Date & [...] we will treat for a fungal infection. [facility] Other Evaluation note 05-25-2022 Note Date & [...] to continue with what he is doing. [facility] Other Evaluation note Note Date & Type Note Facility Evaluation note No assessment information availa [facility] Work Phone: History general Narrative - Reported Note Date & Type Note Facility History general Narrative - Reported Type Medical History Chicken Pox Medical History Right Collar Bone Fracture Medical History Allergies Hospitalization History Broken Collar Bone [facility] Other Summary Purpose Family History No Family History Records FoundNo Family History Records Found Advance Directives Advance Directive Response Recorded Date/ Time Advance Directives No October 12:16pm Reason for Referral Reason appt pt needs cons ult with sleep lab in [place] Diagnosis 1 Snoring (R06.83) Referral Organization [facility] [place] Referring Provider First Name Tera Referring Provider Last Name Sheflorencio Referring Provider Specialty Family Prac dinora Referred Organization [facility] Referred Address [address], [place],[address] Referred Provider Specialty Sleep Medici ne Referral [...] and content) DATE CREATED AUTHOR 05/22/2021 [facility] [place] [facility] DATE CREATED AUTHOR AUTHOR'S ORGANIZ ATION 05/01/2023 [facility] REASON FOR VISIT (unrecogniz ed section [...] BE BASED ON THE PRIMARY CLINICAL RECORDS. [facility]. provides no warranty or guarantee of the accuracy or completeness of information in this document.
== END 2023-12-13 20:49 | disposition home or self-care (01) ==
LOC: SLEEP 20:48
PROVIDERS: PCP Family Medicine; Visit Provider Family Medicine
DX: G47.33 Obstructive sleep apnea (adult) (pediatric) (principal)
CPT/HCPCS: 95811

== ENCOUNTER 2024-11-10 08:47 | Outpatient (OUT) | payer OTHER, SELFPAY ==
--- OUTSIDE RECORDS SUMMARY | 2024-11-10 08:51 | XMS_ITS | CCD ---
Author Organization [facility] Care Team Providers Care Document Control Associate Name Role Phone DR TERA KUNZ Attending Unavailable MARIELENA, DR HALEY Admitting Unavailable MARIELENA, DR HALEY Primary Care Unavailable MARIELENA, DR HALEY Admitting Unavailable MARIELENA, DR HALEY Primary Care Unavailable MARIELENA, DR HALEY Consulting Unavailable MARIELENA, DR HALEY Attending Unavailable Tera Kunz Unavailable MD Maxwell Denis Attending Provider Maxwell Denis Admitting Unavailable Maxwell Denis Attending Unavailable Medications Current Medications Medication Drug Class(es) Dates Sig (Normalized) Sig (Original) [id number] 200 actuat albuterol 0.09 mg/actuat metered dose [...] fatigue Episodic Other aftercare (2 sources) Other exterminator termite (current) drug therapy; Translations: [OTH ONLINE JOURNALIST CURRENT DRUG THERAPY] Onset: 05-20-2021 Episodic Other [...] Normal Skin Ermelinda 2 Days PERFORMED BY: [place] [address] PATHOLOGIST MICROPALEONTOLOGIST ABDIEL JIMENES M.D. [facility] Comment on above: Performed By: #### C USUP #### [address] CBC AUTO DIFFon 05-18-2021 BASO # 0.0 103/ul Normal 0.0-0.1 [facility] Comment on above: Performed By: #### C BC #### [facility] [address] [place], [place] [id number] Durga Karishma Basophils/100 WBC (Bld) 0.5 % Normal 0.2-2.0 [facility] Comment on above: Performed By: #### C BC #### [facility] [address] [place], [place] [id number] Durga Karishma EO # 0.3 103/ul Normal 0.0-0.7 [facility] Comment on above: Performed By: #### C BC #### [facility] [address] [place], [place] [id number] Durga Karishma Eosinophils/100 WBC (Bld) 4.5 % Normal 0.9-7.0 [facility] Comment on above: Performed By: #### C BC #### [facility] [address] [place], [place] [id number] Durga Karishma Erythrocyte distribution width (RBC) [Ratio] 12.0 % Normal 11.0-15.0 [facility] Comment on above: Performed By: #### C BC #### [facility] [address] [place] [address] Durgasimeon Schwarz Hematocrit (Bld) [Volume fraction] 44.0 % Normal 42.0-54.0 [facility] Comment on above: Performed By: #### C BC #### [facility] [address] [place] [address] Durgasimeon Schwarz Hemoglobin (Bld) [Mass/Vol] 14.9 g/dL Normal 14.0-18.0 [facility] Comment on above: Performed By: #### C BC #### [facility] [address] [place] [address] Durga Karishma IG # 0.01 10e3/ul Normal 0.00-0.03 [facility] Comment on above: Performed By: #### C BC #### [facility] [address] [place] [address] Durga Karishma IG % 0.1 % Normal 0.0-0.5 [facility] Comment on above: Performed By: #### C BC #### [facility] [address] [place] [address] Durga Karishma LYMPH # 2.8 103/ul Normal 1.2-3.8 [facility] Comment on above: Performed By: #### C BC #### [facility] [address] [place] [address] Durga Schwarz Lymphocytes/100 WBC (Bld) 38.1 % Normal 20.5-60.0 [facility] Comment on above: Performed By: #### C BC #### [facility] [address] [place] [address] Durga Schwarz MANUAL DIFF REQ NO Normal [facility] Comment on above: Performed By: #### C BC #### [facility] [address] [place], [place] [id number] Durga Schwarz MCH (RBC) [Entitic mass] 29.7 pg Normal 25.9-34.0 [facility] Comment on above: Performed By: #### C BC #### [facility] [address] [place] [address] Durgasimeon Schwarz MCHC (RBC) [Mass/Vol] 33.9 g/dL Normal 29.9-35.2 [facility] Comment on above: Performed By: #### C BC #### [facility] [address] [place], [place] [id number] Durga Schwarz MCV (RBC) [Entitic vol] 87.8 fL Normal 80.0-94.0 [facility] Comment on above: Performed By: #### C BC #### [facility] [address] [place], [place] [id number] Durga Schwarz MONO # 0.6 103/ul Normal 0.3-0.8 [facility] Comment on above: Performed By: #### C BC #### [facility] [address] [place], [place] [id number] Durga Schwarz Monocytes/100 WBC (Bld) 8.6 % Normal 1.7-12.0 [facility] Comment on above: Performed By: #### C BC #### [facility] [address] [place] [address] Durga Guzmánen NEUT # 3.5 103/ul Normal 1.4-6.5 [facility] Comment on above: Performed By: #### C BC #### [facility] [address] [place], [place] [id number] Durga Schwarz Neutrophils/100 WBC (Bld) 48.2 % Normal 43.0-75.0 [facility] Comment on above: Performed By: #### C BC #### [facility] [address] [place], [place] [id number] Durgasimeon Schwarz Platelet mean volume (Bld) [Entitic vol] 9.8 fL Normal 9.5-13.5 [facility] Comment on above: Performed By: #### C BC #### [facility] [address] [place], [place] [id number] Durga Karishma PLT 244 103/ul Normal 150-450 [facility] Comment on above: Performed By: #### C BC #### [facility] [address] [place], [place] [id number] Durga Karishma RBC 5.01 106/ul Normal 4.70-6.10 [facility] Comment on above: Performed By: #### C BC #### [facility] [address] [place], [place] [address] Durga Karishma WBC 7.4 103/ul Normal 4.0-11.0 [facility] Comment on above: Performed By: #### C BC #### [facility] [address] [place], [place] [address] Durga Karishma PROF 14(COMP METB)on 021 Albumin [Mass/Vol] 3.9 g/dL Normal 3.5-5.0 [facility] Comment on above: Performed By: #### C MP, URIC #### [facility] [address] [place], [place] [id number] Durga Karishma Albumin/Globulin [Mass ratio] 1.0 {ratio} Normal [facility] Comment on above: Performed By: #### C MP, URIC #### [facility] [address] [place], [place] [id number] Durga Karishma ALP [Catalytic activity/Vol] 54 U/L Normal 38-126 [facility] Comment on above: Performed By: #### C MP, URIC #### [facility] [address] [place], [place] [id number] Durga Karishma ALT [Catalytic activity/Vol] 46 U/L Normal 21-72 [facility] Comment on above: Performed By: #### C MP, URIC #### [facility] [address] [place], [place] [id number] Durga Karishma Anion gap [Moles/Vol] 11.9 mmol/L Normal [facility] Comment on above: Performed By: #### C MP, URIC #### [facility] [address] [place], [place] [id number] Durga Karishma AST [Catalytic activity/Vol] 17 U/L Normal 17-59 [facility] Comment on above: Performed By: #### C MP, URIC #### [facility] [address] [place], [place] [id number] Durga Karishma Bilirubin [Mass/Vol] 0.5 mg/dL Normal 0.2-1.3 [facility] Comment on above: Performed By: #### C MP, URIC #### [facility] [address] [place], [place] [id number] Durga Karishma Calcium [Mass/Vol] 9.1 mg/dL Normal 8.4-10.2 [facility] Comment on above: Performed By: #### C MP, URIC #### [facility] [address] [place], [place] [phone] Durga Karishma Chloride [Moles/Vol] 106 mmol/L Normal 98-107 [facility] Comment on above: Performed By: #### C MP, URIC #### [facility] [address] [place] [address] Durga Karishma CO2 [Moles/Vol] 29.3 mmol/L Normal 22.0-30.[address] [facility] Comment on above: Performed By: #### C MP, URIC #### [facility] [address] [place] [address] Durga Karishma Creatinine [Mass/Vol] 1.16 mg/dL Normal 0.66-1.25 [facility] Comment on above: Performed By: #### C MP, URIC #### [facility] [address] [place], [place] [phone] Durga Karishma EGFR-AF MALAYSIAN >60 Normal >=[address] [facility] Comment on above: Performed By: #### C MP, URIC #### [facility] [address] [place] [address] Durga Karishma EGFR-NON AF MALAYSIAN >60 Normal >=60 [facility] Comment on above: Performed By: #### C MP, URIC #### [facility] [address] [place], [place] [phone] Durga Karishma Globulin (S) [Mass/Vol] 3.9 g/dL Normal [facility] Comment on above: Performed By: #### C MP, URIC #### [facility] [address] [place] [address] Durga Karishma Glucose [Mass/Vol] 104 mg/dL Normal 74-106 [facility] Comment on above: Performed By: #### C MP, URIC #### [facility] [address] [place] [address] Durga Karishma Potassium [Moles/Vol] 4.2 mmol/L Normal 3.4-5.0 [facility] Comment on above: Performed By: #### C MP, URIC #### [facility] [address] [place], [place] [address] Durga Karishma Protein [Mass/Vol] 7.8 g/dL Normal 6.1-8.2 [facility] Comment on above: Performed By: #### C MP, URIC #### [facility] [address] [place] [id number] Durga Karishma Sodium [Moles/Vol] 143 mmol/L Normal 137-145 [facility] Comment on above: Performed By: #### C MP, URIC #### [facility] [address] [place], [place] [address] Durga Karishma Urea nitrogen [Mass/Vol] 15.0 mg/dL Normal 9.0-20.0 [facility] Comment on above: Performed By: #### C MP, URIC #### [facility] [address] [place], [place] [address] Durga Karishma Urea nitrogen/Creatinine [Mass ratio] 12.9 mg/mg Normal [facility] Comment on above: Performed By: #### C MP, URIC #### [facility] [address] [place], [place] [id number] Durga Karishma URIC ACID SERUMon 05-18-2021 Urate [Mass/Vol] 7.7 mg/dL Normal 3.5-8.5 [facility] Comment on above: Performed By: #### C MP, URIC #### [facility] [address] [place] [address] Durga Karishma Vital Signs Date Time Vital Sign Value Performing Clinician Facility 10-26-2023 08:10-0500 Body height 177.8 cm Tera Kunz Other [facility] 10-26-2023 08:10-0500 Body mass index (BMI) [Ratio] 35.72 kg/m2 Tera Kunz Other [facility] Other 10-26-2023 08:10-0500 Body temperature 98.2 [degF] Tera Kunz Other [facility] Other 10-26-2023 08:10-0500 Body weight 112.95 kg Tera Kunz Other [facility] Other 10-26-2023 08:10-0500 Diastolic blood pressure 86 mm[Hg] Tera Kunz Other [facility] Other 10-26-2023 08:10-0500 Respiratory rate 18 /min Tera Kunz Other [facility] Other 10-26-2023 08:10-0500 SaO2% (BldA) [Mass fraction] 99 % Tera Kunz Other [facility] Other 10-26-2023 08:10-0500 Systolic blood pressure 124 mm[Hg] Tera Kunz Other [facility] Other 10-01-2022 14:10-0500 Body height 177.8 cm Tera Kunz Other [facility] Other 10-01-2022 14:10-0500 Body mass index (BMI) [Ratio] 37.09 kg/m2 Tera Kunz Other [facility] Other 10-01-2022 14:10-0500 Body temperature 97.5 [degF] Tera Kunz Other [facility] Other 10-01-2022 14:10-0500 Body weight 117.26 kg Tera Kunz Other [facility] Other 10-01-2022 14:10-0500 Diastolic blood pressure 84 mm[Hg] Tera Kunz Other [facility] Other 10-01-2022 14:10-0500 Respiratory rate 18 /min Tera Kunz Other [facility] Other 10-01-2022 14:10-0500 SaO2% (BldA) [Mass fraction] 97 % Tera Kunz Other [facility] Other 10-01-2022 14:10-0500 Systolic blood pressure 126 mm[Hg] Tera Kunz Other [facility] Other 05-25-2022 09:10-0400 Body height 177.8 cm Tera Kunz Other [facility] Other 05-25-2022 09:10-0400 Body mass index (BMI) [Ratio] 36.3 kg/m2 Tera Sheflorencio Other [facility] Other 05-25-2022 09:10-0400 Body temperature 96.9 [degF] Tera Kunz Other [facility] Other 05-25-2022 09:10-0400 Body weight 114.76 kg Tera Kunz Other [facility] Other 05-25-2022 09:10-0400 Diastolic blood pressure 80 mm[Hg] Tera Kunz Other [facility] Other 05-25-2022 09:10-0400 Respiratory rate 18 /min Tera Kunz Other [facility] Other 05-25-2022 09:10-0400 SaO2% (BldA) [Mass fraction] 97 % Tera Kunz Other [facility] Other 05-25-2022 09:10-0400 Systolic blood pressure 120 mm[Hg] Tera Kunz Other [facility] Other Encounters Encounter Date Encounter Type Care Provider Facility Start: 10-26-2023 End: 10-26-2023 ambulatory Tera Kunz Other [facility] Other Start: 10-26-2023 Encounter for genera l adult medical examination without abnormal findings Tera Kunz [facility] Start: 10-26-2023 Periodic preventive med est patient 18-39 yrs Tera Kunz [facility] Start: 09-01-2023 End: 09-01-2023 ambulatory Tera Kunz Other [facility] Start: 09-01-2023 Encounter for genera l adult medical examination without abnormal findings Tera Kunz [facility] Start: 09-01-2023 Telephone encounter Tera Kunz [facility] Start: 04-21-2023 End: 04-21-2023 ambulatory Maxwell Denis Facility:[facility] Start: 04-21-2023 End: 04-21-2023 ambulatory MD Maxwell Denis Work Phone: [facility] Work Phone: Start: 04-21-2023 End: 04-21-2023 Departed Referred MD Maxwell Denis Work Phone: [facility] Work Phone: Start: 11-16-2022 End: 11-16-2022 ambulatory Tera Kunz Other [facility] Start: 11-16-2022 Telephone encounter Tera Kunz [facility] Start: 10-01-2022 End: 10-01-2022 ambulatory Tera Kunz Other [facility] Other Start: 10-01-2022 Office outpatient vi sit 15 minutes Tera Kunz [facility] Start: 05-25-2022 End: 05-25-2022 ambulatory Tera Kunz Other [facility] Start: 05-25-2022 Encounter for genera l adult medical examination without abnormal findings Tera Kunz [facility] Start: 05-25-2022 Periodic preventive med est patient 18-39 yrs Tera Kunz [facility] Start: 05-18-2021 End: 05-19-[address] TERA KUNZ Facility:[facility] Start: 03-17-[address] TERA KUNZ Facilit y:[facility] Plan of Treatment Date Care Activity Detail Author Start: 04-21-2023 Superficial Wound Culture Superficial Wound Culture [facility] Bacteria identified in Unspecified specimen by Aerobe culture [facility] Immunizations Immunization Date Immunization Notes Care Provider Fa cility 02-22-2018 tetanus toxoid, reduced diphtheria toxoid, and acellular pertussis vaccine, adsorbed Tera Kunz Other [facility] Other Payers Date Payer Category Payer Unknown [id number] [id number] 1993 Unknown [id number] 1961 Self-pay 1961 Unknown [id number] Unknown [employer] [id number] Unknown [id number] [id number] [id number] Social History Date Type Detail Facility Unknown if ever smoked [facility] Other Sex Assigned At Sex Assigned At Bir th [facility] Other Start: 1995 Sex Assigned At Male [facility] Evaluation note 10-26-2023 Note Date & [...] 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 He is better than he was but [...] will also treat him with Zithromax. Oct, retirement use of drug (ICD-10 - Z79.899) Oct, [...] and told him nothing abnormal came back. [facility] Other Evaluation note 09-01-2023 Note Date & Type Note Facility 09-01-2023 Evaluation note Encounter Date Diagnosis Assessment Notes Aug, Gout (ICD-10 - M10.9) Aug, Wellness examination (ICD-10 - Z00.00) [facility] Other Evaluation note 11-16-2022 Note Date & Type Note Facility 11-16-2022 Evaluation note Encounter Date Diagnosis Assessment Notes 27 Dec, 2022 Cellulitis (ICD-10 - L03.90) [facility] Other Evaluation note 10-01-2022 Note Date & [...] we will treat for a fungal infection. [facility] Other Evaluation note 05-25-2022 Note Date & [...] to continue with what he is doing. [facility] Other Evaluation note Note Date & Type Note Facility Evaluation note No assessment information availa [facility] Work Phone: History general Narrative - Reported Note Date & Type Note Facility History general Narrative - Reported Type Medical History Chicken Pox Medical History Right Collar Bone Fracture Medical History Allergies Hospitalization History Broken Col[facility] Other Summary Purpose Family History No Family History Records FoundNo Family History Records Found Advance Directives Advance Directive Response Recorded Date/ Time Advance Directives No October 12:16pm Reason for Referral Reason appt pt needs cons ult with sleep lab in [place] Diagnosis 1 Snoring (R06.83) Referral Organization [facility] [place] Referring Provider First Name Tera Referring Provider Last Name Marielena Referring Provider Specialty Family Prac dinora Referred Organization [facility] Referred Address [address], [place],[address] Referred Provider Specialty Sleep Medici ne Referral [...] and content) DATE CREATED AUTHOR 05/22/2021 [facility] DATE CREATED AUTHOR AUTHOR'S ORGANIZ ATION 05/01/2023 [facility] REASON FOR VISIT (unrecogniz ed section [...] BE BASED ON THE PRIMARY CLINICAL RECORDS. [employer] provides no warranty or guarantee of the accuracy or completeness of information in this document.
[2024-11-10 09:01] LABS: Basophils Percent Auto 0.5 % (0.2-2.0); Eosinophils Absolute Auto 0.5 10^3/uL (0.0-0.7); Eosinophils Percent Auto 5.9 % (0.9-7.0); Hematocrit 45.6 % (42.0-54.0); Hemoglobin 15.5 g/dL (14.0-18.0); Immature Granulocytes Abs Auto 0.01 10^3/uL (0.00-0.03); Immature Granulocytes Pct Auto 0.1 % (0.0-0.5); Lymphocytes Absolute Auto 2.9 10^3/uL (1.2-3.8); Lymphocytes Percent Auto 37.1 % (20.5-60.0); Mean Corpuscular Hemoglobin 29.6 pg (25.9-34.0); Mean Platelet Volume 9.6 fL (9.5-13.5); Monocytes Absolute Auto 0.7 10^3/uL (0.3-0.8); Monocytes Percent Auto 8.6 % (1.7-12.0); Neutrophils Absolute Auto 3.7 10^3/uL (1.4-6.5); Neutrophils Percent Auto 47.8 % (43.0-75.0); Platelet Count 264 10^3/uL (150-450); Red Blood Count 5.24 10^6/uL (4.70-6.10); Red Cell Distribution Width 12.2 % (11.0-15.0); White Blood Count 7.7 10^3/uL (4.0-11.0)
[2024-11-10 09:10] LABS: Bilirubin Urine NEGATIVE (NEGATIVE); Blood Urine TRACE-I (NEGATIVE); Clarity Urine CLEAR (CLEAR); Color Urine YELLOW (YELLOW); Glucose Urine UA NEGATIVE (NEGATIVE); Ketones Urine NEGATIVE (NEGATIVE); Leukocyte Esterase Urine NEGATIVE (NEGATIVE); Nitrite Urine NEGATIVE (NEGATIVE); Protein Urine NEGATIVE (NEG/TRACE); Specific Gravity Urine 1.025 (1.005-1.025); Urobilinogen Urine 0.2 EU/dL (0.2-1.0)
[2024-11-10 09:58] LABS: Estimated Average Glucose 105 mg/dL; Glycohemoglobin A1C 5.3 % (4.5-6.2)
[2024-11-10 10:02] LABS: Alanine Aminotransferase 38 U/L (16-63); Albumin Globulin Ratio 0.9; Albumin Level 3.8 g/dL (3.4-5.0); Alkaline Phosphatase 61 U/L (46-116); Anion Gap 12.3; Aspartate Amino Transferase 20 U/L (15-37); BUN Creatinine Ratio 11.7; Bilirubin Total 0.7 mg/dL (0.2-1.0); Calcium 9.6 mg/dL (8.5-10.1); Carbon Dioxide 31.7 mmol/L (21.0-32.0); Chloride 104 mmol/L (98-107); Chol HDL Ratio 4.7; Cholesterol 222 mg/dL (<=200); Estimated GFR (African America >60 (>=60 mL/min/1.73m^2); Estimated GFR (Non-African Ame >60 (>=60 mL/min/1.73m^2); Glucose 99 mg/dL (74-106); HDL Cholesterol 47 mg/dL (40-60); Sodium 144 mmol/L (136-145); Total Protein 7.8 g/dL (6.4-8.2); Triglycerides 113 mg/dL (<=150); VLDL CHOLESTEROL 22.6 mg/dL
[2024-11-10 10:29] LABS: Bacteria Urine NONE SEEN #/HPF (NONE SEEN); Mucus Urine NONE SEEN (NONE SEEN); RBC Urine 0-2 #/HPF (0-2); Squamous Epithelial Cell Urine FEW #/LPF (NONE/RARE); WBC Urine NONE SEEN #/HPF (NONE SEEN)
== END 2024-11-10 08:48 | disposition home or self-care (01) ==
LOC: LAB 08:49
PROVIDERS: PCP Family Medicine; Visit Provider Family Medicine
DX: Z00.00 Encounter for general adult medical examination without abnormal findings (principal); M10.9 Gout, unspecified
CPT/HCPCS: 36415; 80053; 80061; 81001; 83036; 84443; 84550; 85025